=== PATIENT | female | born 1940 | race Caucasian/White ===

== ENCOUNTER 2017-12-15 08:38 | Inpatient (IN) | payer MEDICARE ==
[~2017-12-15] VITALS: Ht 172.7 cm; Wt 100.0 kg
[~2017-12-15 08:38] MED LIST: AMIT10TA PO; ASCO-96 PO; ASPI-496 PO; BUPIVACAINE/PF 0.5% ONE; CALC1CAP8 PO; EPINEPHRINE 1 MG/ML, 1ML ONE; KETOROLAC 60 MG/2 ML ONE; LEVO175T5 PO; LISI-167 PO; MULT-709 PO; OMEG1CAP34 PO; ROSU40TA PO; SODIUM CHLORIDE 0.9% 100 ML ONE; TRANEXAMIC ACID 100 MG/ML, 10ML ONE
[2017-12-15] MEDS ORDERED: GABAPENTIN 300 MG CAPSULE PO ONE ×2 (09:00→09:30)
[2017-12-15] MEDS ORDERED: ACETAMINOPHEN 500 MG TABLET PO ONE ×2 (09:00→09:30)
[2017-12-15 09:13] VITALS: BP 137/58
[2017-12-15] MEDS ORDERED: LACTATED RINGERS 1,000 ML IV SCH (09:21)
[2017-12-15] MEDS ORDERED: ONDANSETRON 2MG/ML, 2ML IV PRN (11:30)
[2017-12-15] MEDS ORDERED: SCOPOLAMINE PATCH, 1.5MG PATCH.TD72 TD ONE (11:30)
[2017-12-15] MEDS ORDERED: ACETAMINOPHEN 650 MG/20.3 ML UDC PO PRN (11:30)
[2017-12-15] MEDS ORDERED: BISACODYL 10 MG SUPP PR PRN (11:30)
[2017-12-15] MEDS ORDERED: MAGNESIUM HYDROXIDE 8%, 30ML UDC PO PRN (11:30)
[2017-12-15] MEDS ORDERED: SENNA/DOCUSATE TABLET PO PRN (11:30)
[2017-12-15] MEDS ORDERED: ONDANSETRON 4 MG TABLET PO PRN (11:30)
[2017-12-15] MEDS ORDERED: DIPHENHYDRAMINE 50 MG CAPSULE PO PRN (11:30)
[2017-12-15] MEDS ORDERED: ZOLPIDEM 5MG TABLET PO PRN (11:30)
[2017-12-15] MEDS ORDERED: HYDROcodone/APAP 5/325 TABLET PO PRN (11:30)
[2017-12-15] MEDS ORDERED: CEFAZOLIN 2,000 MG in DEXTROSE 5% 50 ML IVPB SCH (11:30)
[2017-12-15] MEDS ORDERED: OXYcodone IR 5MG TABLET PO PRN (11:30)
[2017-12-15] MEDS ORDERED: CEFAZOLIN 1,000 MG ONE (11:43)
[2017-12-15] MEDS ORDERED: ROCURONIUM 10 MG/ML,10ML ONE (11:43)
[2017-12-15] MEDS ORDERED: PHENYLEPHRINE 10 MG/ML ONE (11:43)
[2017-12-15] MEDS ORDERED: NEOSTIGMINE 1 MG/ML, 10ML ONE (11:43)
[2017-12-15] MEDS ORDERED: PROPOFOL 10 MG/ML, 20ML ONE (11:43)
[2017-12-15] MEDS ORDERED: FENTANYL PF 100 MCG/2ML ONE (11:43)
[2017-12-15] MEDS ORDERED: DEXAMETHASONE 4 MG/ML, 1ML ONE (11:43)
[2017-12-15] MEDS ORDERED: HYDROmorphone 2 MG/ML, 1ML ONE (11:43)
[2017-12-15] MEDS ORDERED: ONDANSETRON 2MG/ML, 2ML ONE ×2 (11:43)
[2017-12-15] MEDS ORDERED: GLYCOPYRROLATE 0.2MG/1ML, 5ML ONE (11:43)
[2017-12-15] MEDS ORDERED: EPHEDRINE 50 MG/ML, 1ML ONE (11:43)
[2017-12-15] MEDS ORDERED: LABETALOL 5MG/ML, 20ML IV PRN (12:30)
[2017-12-15] MEDS ORDERED: LORazepam 2 MG/ML, 1ML IVPush PRN (12:30)
[2017-12-15] MEDS ORDERED: HYDROmorphone 1 MG/ML, 1ML IV PRN (12:30)
[2017-12-15] MEDS ORDERED: MEPERIDINE/PF 25MG/0.5ML IVPush PRN (12:30)
[2017-12-15] MEDS ORDERED: FENTANYL PF 100 MCG/2ML IV PRN (12:30)
[2017-12-15] MEDS ORDERED: hydrALAzine 20 MG/ML, 1ML IV PRN (12:30)
[2017-12-15] MEDS ORDERED: ACETAMINOPHEN 325 MG TABLET PO PRN (12:30)
[2017-12-15] MEDS ORDERED: PROMETHAZINE 12.5 MG SUPP PR PRN (12:30)
[2017-12-15] MEDS ORDERED: ALBUTEROL SULFATE 2.5 MG/3 ML NPPB PRN (12:30)
[2017-12-15] MEDS ORDERED: PROMETHAZINE 25 MG/ML, 1ML IV PRN (12:30)
[2017-12-15] MEDS ORDERED: OXYcodone 5 MG/5 ML ORAL.SOL UDC PO PRN (12:30)
[2017-12-15] MEDS ORDERED: morphine SULFATE 10 MG/ML, 1ML IV PRN (12:30)
[2017-12-15 14:30] VITALS: BP 94/43
[2017-12-15] MEDS: NS + 20MEQ KCL 1,000 ML IV SCH (15:10)
[2017-12-15] MEDS: ASPIRIN 81 MG TABLET EC PO SCH (18:11)
[2017-12-15 19:31] VITALS: BP 113/65
[2017-12-15] MEDS: DOCUSATE 100 MG CAPSULE PO SCH ×2 (19:49→19:51)
[2017-12-15] MEDS ORDERED: ATORVASTATIN 40 MG TABLET PO SCH (21:00)
[2017-12-15] MEDS ORDERED: AMITRIPTYLINE 10 MG TABLET PO SCH (21:00)
[2017-12-16] VITALS: BP 102/51
[2017-12-16] MEDS: NS + 20MEQ KCL 1,000 ML IV SCH (03:30)
[2017-12-16 04:59] VITALS: BP 128/43
[2017-12-16] MEDS ORDERED: LEVOTHYROXINE 175 MCG TABLET ONE (05:55)
[2017-12-16] MEDS: ASPIRIN 81 MG TABLET EC PO SCH (05:56)
[2017-12-16] MEDS ORDERED: DEXAMETHASONE 4 MG/ML, 1ML IVPush SCH (06:00)
[2017-12-16 07:30] VITALS: BP 119/45
[2017-12-16] MEDS ORDERED: LISINOPRIL 10 MG TABLET PO SCH (09:00)
[2017-12-16] MEDS ORDERED: LEVOTHYROXINE 175 MCG TABLET PO SCH (09:00)
[2017-12-16] MEDS ORDERED: OXYC5TAB3 PO (09:11)
[2017-12-16] MEDS ORDERED: MELO7.5T31 PO (09:12)
[2017-12-16] MEDS ORDERED: TRAM50TA2 PO (09:12)
[2017-12-16] MEDS: DOCUSATE 100 MG CAPSULE PO SCH (09:19)
== END 2017-12-16 10:04 | disposition home or self-care (01) | DRG 470 ==
LOC: ORIP 08:38 → 4NOR 14:36
PROVIDERS: ADMIT Orthopaedic Surgery; ATTEND Orthopaedic Surgery
PROC: 0SRB06A Replacement of Left Hip Joint with Oxidized Zirconium on Polyethylene Synthetic Substitute, Uncemented, Open Approach (ICD-10-PCS; principal; 2017-12-15 11:15)
DX: M16.12 Unilateral primary osteoarthritis, left hip (principal); Z79.899 Other long term (current) drug therapy; Z88.8 Allergy status to other drugs, medicaments and biological substances
CPT/HCPCS: 36415; 72170; 76001; 85014; 85018; 86850; 86900; C1713; J0171; J0690; J1100; J1170; J1885; J2405; J2704; J2710; J3010; J3480; J3490; C1776; J2370; J7120